=== PATIENT | female | born 1945 | race Caucasian/White ===

== ENCOUNTER → 2023-08-30 13:05 | Outpatient (REF) | payer MEDICARE, OTHER, SELFPAY | LOC: HWRAD 13:05 | PROVIDERS: ATTENDING PHYSICIAN Internal Medicine | DX: Z12.31 Encounter for screening mammogram for malignant neoplasm of breast (principal); Z78.0 Asymptomatic menopausal state | CPT/HCPCS: 77063; 77067; 77080 ==

== ENCOUNTER → 2023-11-15 09:58 | Outpatient (REF) | payer MEDICARE, OTHER, SELFPAY ==
[2023-11-15 12:24] LABS: ALT (SGPT) 19 U/L (0-35); AST (SGOT) 29 U/L (14-36); Albumin 4.4 g/dl (3.5-5.0); Alkaline Phosphatase 66 U/L (38-126); Blood Urea Nitrogen 23 mg/dl (7-17); Calcium 9.6 mg/dl (8.4-10.2); Carbon Dioxide 26 mmol/L (22-30); Chloride 108 mmol/L (98-107); Glucose 94 mg/dl (70-99); HDL Cholesterol 74 mg/dl; LDL Cholesterol, Calculated 95 mg/dl; Potassium 4.2 mmol/L (3.5-5.1); Sodium 141 mmol/L (135-145); Total Bilirubin 0.5 mg/dl (0.2-1.3); Total Cholesterol 195 mg/dl (50-199); Total Protein 6.7 g/dl (6.3-8.2); Triglyceride 131 mg/dl (10-149); Very Low Density Lipoprotein 26 mg/dl (0-30); eGFR 45.76
[2023-11-15 14:25] LABS: Glycohemoglobin (HgbA1c) 5.5 % (4.0-5.6)
== END ==
LOC: HWLAB 09:58
PROVIDERS: ATTENDING PHYSICIAN Internal Medicine
DX: E78.5 Hyperlipidemia, unspecified (principal); R73.01 Impaired fasting glucose
CPT/HCPCS: 36415; 80053; 80061; 83036

== ENCOUNTER → 2024-06-27 10:15 | Outpatient (REF) | payer MEDICARE, OTHER, SELFPAY ==
[2024-06-27 13:04] LABS: ALT (SGPT) 18 U/L (0-35); AST (SGOT) 22 U/L (14-36); Albumin 4.5 g/dl (3.5-5.0); Alkaline Phosphatase 60 U/L (38-126); Blood Urea Nitrogen 35 mg/dl (7-17); Calcium 9.6 mg/dl (8.4-10.2); Carbon Dioxide 21 mmol/L (22-30); Chloride 108 mmol/L (98-107); Glucose 97 mg/dl (70-99); HDL Cholesterol 60 mg/dl; LDL Cholesterol, Calculated 88 mg/dl; Potassium 4.5 mmol/L (3.5-5.1); Sodium 140 mmol/L (135-145); Total Bilirubin 0.6 mg/dl (0.2-1.3); Total Cholesterol 169 mg/dl (50-199); Total Protein 6.9 g/dl (6.3-8.2); Triglyceride 105 mg/dl (10-149); Very Low Density Lipoprotein 21 mg/dl (0-30)
== END ==
LOC: HWLAB 10:15
PROVIDERS: ATTENDING PHYSICIAN Internal Medicine
DX: E78.5 Hyperlipidemia, unspecified (principal)
CPT/HCPCS: 36415; 80053; 80061

== ENCOUNTER → 2024-06-29 10:31 | Outpatient (REF) | payer MEDICARE, OTHER, SELFPAY ==
[2024-06-29 12:25] LABS: 24 Hour Urine Total Volume 1200 ml
[2024-06-29 16:34] LABS: % Basophils 0.8 % (0-2); % Eosinophils 3.3 % (0-6); % Immature Granulocytes 0.1 % (0-0.5); % Lymphocytes 22.7 % (20.5-51.1); % Monocytes 8.2 % (1.7-9.3); % Neutrophils 64.9 % (42.2-75.2); Absolute Basophils 0.1 10^3/uL (0-0.2); Absolute Eosinophils 0.3 10^3/uL (0-0.7); Absolute Lymphocytes 1.7 10^3/uL (1.2-3.4); Absolute Monocytes 0.6 10^3/uL (0.1-0.6); Mean Corp Hgb Conc. 33.3 g/dL (33.0-37.0); Mean Corpuscular Hgb 30.8 pg (27.0-31.0); Mean Corpuscular Volume 92.5 fL (81.0-99.0); Nucleated Red Blood Cells % 0 %; Platelet Count 325 10^3/uL (130-400); Red Blood Cell Count 3.89 10^6/uL (4.20-5.40); Red Cell Dist. Width 13.8 % (11.5-14.5); White Blood Cell Count 7.7 10^3/uL (4.8-10.8)
[2024-06-29 16:41] LABS: Blood Urea Nitrogen 42 mg/dl (7-17); Calcium 9.8 mg/dl (8.4-10.2); Carbon Dioxide 22 mmol/L (22-30); Chloride 104 mmol/L (98-107); Glucose 101 mg/dl (70-99); Potassium 4.6 mmol/L (3.5-5.1); Sodium 137 mmol/L (135-145)
[2024-06-29 16:50] LABS: Serum Creatinine 1.6 mg/dl (0.7-1.5)
[2024-06-29 16:51] LABS: Creat Clear Result 32.7 ml/min (61-166); Height Cm 170.18 CM; Surface Area 2.022; Weight Kg 90.7 KG.
[2024-06-29 17:11] LABS: TSH Reflex To Free T4 0.38 uIU/ml (0.47-4.68)
[2024-06-29 17:40] LABS: Free T4 1.19 ng/dl (0.78-2.19)
== END ==
LOC: HWLAB 10:31
PROVIDERS: ATTENDING PHYSICIAN Internal Medicine
DX: N18.31 Chronic kidney disease, stage 3a (principal); R06.02 Shortness of breath; R53.83 Other fatigue
CPT/HCPCS: 36415; 71046; 80048; 81050; 82575; 84439; 84443; 85025

== ENCOUNTER → 2024-07-12 11:46 | Outpatient (REF) | payer MEDICARE, OTHER, SELFPAY | LOC: HWRCS 11:46 | PROVIDERS: ATTENDING PHYSICIAN Internal Medicine | DX: Z01.818 Encounter for other preprocedural examination (principal); E78.5 Hyperlipidemia, unspecified; R06.02 Shortness of breath | CPT/HCPCS: 78452; 93017; A9500; J2785 ==

== ENCOUNTER 2024-07-24 09:05 | Inpatient (IN) | payer MEDICARE, OTHER, SELFPAY ==
[2024-07-19 11:39] LABS: Hematocrit 36.7 % (37.0-47.0); Hemoglobin 11.7 g/dL (12.0-16.0); Mean Corp Hgb Conc. 31.9 g/dL (33.0-37.0); Mean Corpuscular Hgb 30.1 pg (27.0-31.0); Mean Corpuscular Volume 94.3 fL (81.0-99.0); Mean Platelet Volume 10.1 fL (7.4-10.4); Platelet Count 306 10^3/uL (130-400); Red Blood Cell Count 3.89 10^6/uL (4.20-5.40); Red Cell Dist. Width 14.7 % (11.5-14.5); White Blood Cell Count 7.9 10^3/uL (4.8-10.8)
[2024-07-19 11:41] LABS: ALT (SGPT) 17 U/L (0-35); AST (SGOT) 22 U/L (14-36); Albumin 4.7 g/dl (3.5-5.0); Alkaline Phosphatase 65 U/L (38-126); Blood Urea Nitrogen 27 mg/dl (7-17); Calcium 9.7 mg/dl (8.4-10.2); Carbon Dioxide 22 mmol/L (22-30); Chloride 107 mmol/L (98-107); Glucose 88 mg/dl (70-99); Potassium 4.8 mmol/L (3.5-5.1); Sodium 141 mmol/L (135-145); Total Bilirubin 0.7 mg/dl (0.2-1.3); Total Protein 6.9 g/dl (6.3-8.2); eGFR 41.31
[2024-07-19 13:49] LABS: Glycohemoglobin (HgbA1c) 5.4 % (4.0-5.6)
[2024-07-19 14:09] VITALS: BMI 31.8
[2024-07-20 11:05] VITALS: BMI 31.8
[2024-07-24] VITALS (8 sets, daily range): BP systolic 115–171; BP diastolic 64–88; PULSE 76; O2SAT 98
[2024-07-24] MEDS: CELEBREX 200 MG PO (10:24)
[2024-07-24] MEDS: TYLENOL 650 MG PO (10:24)
[2024-07-24] MEDS: NORMOSOL-R/PLASMALYTE-A 1000 IV ×2 (10:40→16:27)
--- NOTE | 2024-07-24 14:18 | W.PN.UPDATE ---
Update Note
Progress Note Update
L knee OA s/p L TKA w/ Dr York 07/24/24
- s/p R TKA, 2013, by Dr Medina and remote b/l TSA
DVT prophylaxis - ASA, b/l venous foot pumps
HTN - + parameters - monitor BP
Chronic myocardial ischemia, on medical therapy - monitor on tele
Abdominal aortic aneurysm per records - ensure adequate BP control
Chronic kidney disease stage 3 - minimize NSAIDs post-op
Peripheral neuropathy
Lumbar degenerative disc disease with radiculopathy
- Add Gabapentin to accommodate for post-surgical pain
Mild pre-operative anemia - non-invasive hgb in AM
Hyperlipidemia
Chronic dyspnea on exertion
Vocal cord dysfunction with previous Botox injections
Colon polyps
Diverticulosis
Benign essential tremor
Herpes simplex virus
Anxiety
Bipolar disorder
Obesity, BMI 31.8
[2024-07-24] MEDS: DIOVAN 80 MG PO (16:23)
[2024-07-24] MEDS: NEURONTIN 200 MG PO (16:23)
[2024-07-24] MEDS: LAMICTAL 200 MG PO (16:24)
[2024-07-24] MEDS: SEROQUEL 12.5 MG PO (16:24)
[2024-07-24] MEDS: LIPITOR 20 MG PO (18:14)
[2024-07-24] MEDS: ASPIRIN 325 MG PO (18:14)
[2024-07-24] MEDS: ANCEF 5 IV (22:00)
[2024-07-24] MEDS: DECADRON 4 MG PO (22:00)
[2024-07-24] MEDS: BACTROBAN 2% OINTMENT 1 APPLIC NASAL (22:02)
[2024-07-24] MEDS: PEPCID 20 MG PO (22:03)
[2024-07-24] MEDS: FLOMAX 0.4 MG PO (22:43)
[2024-07-24] MEDS: COLACE PO (22:44)
[2024-07-24] MEDS: NEURONTIN PO (22:44)
[2024-07-24] MEDS: NORCO 5/325 1 TABLET PO (22:44)
[2024-07-25 00:23] VITALS: BP 117/64
[2024-07-25] MEDS: NORCO 5/325 2 TABLET PO ×2 (02:34→08:01)
[2024-07-25 03:00] VITALS: BP 119/61
[2024-07-25] MEDS: ANCEF 5 IV (05:39)
[2024-07-25 06:56] VITALS: BP 124/70
[2024-07-25] MEDS: SEROQUEL 12.5 MG PO (08:01)
[2024-07-25] MEDS: LAMICTAL 200 MG PO (08:01)
[2024-07-25] MEDS: NEURONTIN 200 MG PO (08:02)
[2024-07-25] MEDS: ASPIRIN 325 MG PO (08:02)
[2024-07-25] MEDS: DIOVAN PO (08:02)
[2024-07-25] MEDS: COLACE 100 MG PO (08:02)
[2024-07-25] MEDS: DECADRON 4 MG PO (08:03)
--- NOTE | 2024-07-25 09:00 | W.PN.ORTHO ---
Today's Communication / Plan
-
Await PT and OT recs.
D/c later today if remaining clinically stable.
Assessment
.
Distal Motor Intact: Yes
Dressing:
Scant areas of old bleeding along incision line.
Assessment:
L knee OA s/p L TKA w/ Dr York 07/24/24
- s/p R TKA, 2013, by Dr Medina and remote b/l TSA
DVT prophylaxis - ASA, b/l venous foot pumps
Post-surgical urinary retention - improving by POD 1 w/ Flomax x1
HTN - + parameters - BPs overall stable
Chronic myocardial ischemia, on medical therapy - maintaining NSR on tele
Abdominal aortic aneurysm per records - adequate BP control ensured
Chronic kidney disease stage 3 - minimized NSAIDs post-op
Peripheral neuropathy
Lumbar degenerative disc disease with radiculopathy
- Continue Gabapentin to accommodate for post-surgical pain
Mild pre-operative anemia - non-invasive hgb 10.9 POD 1
- Asymptomatic, hemodynamically stable
Hyperlipidemia
Chronic dyspnea on exertion
Vocal cord dysfunction with previous Botox injections
Colon polyps
Diverticulosis
Benign essential tremor
Herpes simplex virus
Anxiety
Bipolar disorder
Obesity, BMI 31.8
Plan
.
Surgery / Date: L TKA w/ Dr York 07/24/24
DVT Prophylaxis: Aspirin
Activity:
Out of bed.
PT/OT
Discharge Plan: Home w/ VN
Subjective
.
.:
Patient resting comfortably in bed.
L knee pain overall well tolerated w/ current pain meds.
Denies any new significant complaints.
Eager for potential d/c today.
Vital Signs and Labs
.
Vital Signs and Labs:
Lab Results
07/19/24 10:24
07/19/24 10:24
Temp Pulse Resp BP Pulse Ox
98.0 F 73 18 124/70 97
07/25/24 06:56 07/25/24 08:02 07/25/24 06:56 07/25/24 08:02 07/25/24 06:56
Non-invasive Hgb result: 10.9
Physical Exam
-
HEENT: No pallor, cyanosis, or jaundice. Throat clear.
NECK: Supple. No JVD.
RESPIRATORY: Lungs clear to auscultation.
CVS: S1, S2 normal. RRR.�
ABDOMEN: Soft, non-tender. No distension. Obese.
EXTREMITIES: Expected post-surgical L knee edema. Strength equal, no calf pain with palpation/dorsiflexion. Calves soft
VISITOR SERVICES INFORMATION ASSISTANT: AOx3. No focal deficits. license examiner grossly intact
--- NOTE | 2024-07-25 09:13 | W.DS.TRANS ---
DC Summary - Behavioral Health Worker
-
Discharge Instructions:
Sleep Apnea Risk Intermediate
Discharge Diagnosis/Procedures L knee OA s/p L TKA w/ Dr York 07/24/24
Diet Regular
Activity As tolerated,With Walker
Driving Restrictions Not until seen by your Dr
Bathing Restrictions OK to Shower
Other Services PT,VN
Wound Care Dressing to be removed 1 week post-surgery.
Ruperto to be removed at 2 week follow-up with
surgeon's office.
Instructions:
Stand-Alone Forms: Total Hip/Knee Replacement D/C
Changes to Home Medications: Yes
Discharge Medications:
DC Medications w/original date entered in [employer]
simvastatin 20 mg tablet 40 mg PO DAILY High Cholesterol 08/04/12
valacyclovir 500 mg tablet 500 mg PO Q48H Infection 08/04/12
biotin 300 mcg tablet 600 mcg PO DAILY Supplement 07/18/24
calcium carbonate (Calcium 600) 600 mg PO DAILY Supplement 07/18/24
coQ10 (ubiquinol) 200 mg capsule 200 mg PO DAILY Supplement 07/18/24
cranberry extract 650 mg capsule (Theracran) 650 mg PO DAILY Supplement 07/18/24
lamotrigine 200 mg tablet 200 mg PO DAILY Neurological Condition 07/18/24
quetiapine 25 mg tablet 12.5 - 25 mg PO DAILY Mental Health/Anxiety 07/18/24
turmeric root extract 500 mg capsule 1,000 mg PO DAILY Supplement 07/18/24
mupirocin 2 % topical ointment 1 applic intranasal BID #1 tube 07/19/24
Vitamin C 1 dose PO DAILYPRN PRN cold ##0 07/25/24
acetaminophen 325 mg tablet 650 mg (2 x 325 mg) PO Q4HPRN PRN mild pain #60 tabs 07/25/24
aspirin 325 mg tablet 325 mg PO DAILY #30 tabs 07/25/24
dexamethasone 4 mg tablet 4 mg PO BID Anti-inflammatory #5 tabs 07/25/24
docusate sodium 100 mg capsule 100 mg PO BID #30 caps 07/25/24
famotidine 20 mg tablet 20 mg PO HS #30 tabs 07/25/24
gabapentin 100 mg capsule 200 mg (2 x 100 mg) PO TID neuropathic pain #30 caps 07/25/24
hydrocodone 5 mg-acetaminophen 325 mg tablet 1 - 2 tab PO Q6H PRN moderate-severe pain #30 tabs 07/25/24
ondansetron HCl 4 mg tablet 4 mg PO Q6H PRN nausea and vomiting #30 tabs 07/25/24
sennosides 8.6 mg tablet (Dasia-carlton) 17.2 mg (2 x 8.6 mg) PO BID #30 tabs 07/25/24
valsartan 80 mg tablet 80 mg PO DAILY Blood Pressure #1 tab 07/25/24
Home Medication Changes
acetaminophen 325 mg tablet 650 mg (2 x 325 mg) PO Q4HPRN PRN mild pain #60 tabs 07/25/24
aspirin 325 mg tablet 325 mg PO DAILY #30 tabs 07/25/24
dexamethasone 4 mg tablet 4 mg PO BID Anti-inflammatory #5 tabs 07/25/24
docusate sodium 100 mg capsule 100 mg PO BID #30 caps 07/25/24
famotidine 20 mg tablet 20 mg PO HS #30 tabs 07/25/24
gabapentin 100 mg capsule 200 mg (2 x 100 mg) PO TID neuropathic pain #30 caps 07/25/24
hydrocodone 5 mg-acetaminophen 325 mg tablet 1 - 2 tab PO Q6H PRN moderate-severe pain #30 tabs 07/25/24
ondansetron HCl 4 mg tablet 4 mg PO Q6H PRN nausea and vomiting #30 tabs 07/25/24
sennosides 8.6 mg tablet (Dasia-carlton) 17.2 mg (2 x 8.6 mg) PO BID #30 tabs 07/25/24
Pending Results: No
[2024-07-25] MEDS: BACTROBAN 2% OINTMENT 1 APPLIC NASAL (10:00)
[2024-07-25 10:06] VITALS: BP 127/76; BP 134/76; PULSE 82; O2SAT 97
--- NOTE | 2024-07-25 10:36 | CM ---
Initial assessment completed
Pt reports she lives with her in a 1 story home; 1 [address]HA
Independent with ADL's, rollator to ambulate
DME - rollator, raised toilet seat, toilet rails, shower chair, single point cane
SNF - denies past hx
HH - has had in past - unsure of agency
Has ride home - son
PCP - Omaira Kim
Pharm - [facility] [place]
Seen by PT/OT - recs HH
Commode and rolling walker to be dispensed by PT/OT
No preference to agency - [facility]
Given IMM
Plan - home with [facility]
--- NOTE | 2024-07-25 10:58 | VNURNOTE ---
[facility] liaison attempted to meet with patient - she was working with PT. [facility] referral placed in [facility]. Will follow up.
[2024-07-25 11:04] VITALS: BP 110/58
[2024-07-25 11:08] VITALS: BP 110/67; PULSE 95; O2SAT 95
--- NOTE | 2024-07-25 11:16 | VNURNOTE ---
Home Health Liaison spoke with patient to discuss [facility] nurse/therapy, visits, schedule and homebound status. Patient is agreeable and understands that visits at home will be 2-3 x per week to assess and teach medical management. Patient is aware
that [facility] will contact them for start of care in 1-2 days after discharge from . [facility] referral completed in [facility].
== END 2024-07-25 12:40 | disposition home health service (06) | DRG 470 ==
LOC: 2 SOUTH 09:05
PROVIDERS: ADMITTING PHYSICIAN Specialist; FAMILY PHYSICIAN Internal Medicine
PROC: 3E0436Z Introduction of Nutritional Substance into Central Vein, Percutaneous Approach (ICD-10-PCS; 2024-07-24)
PROC: 0SRD0J9 Replacement of Left Knee Joint with Synthetic Substitute, Cemented, Open Approach (ICD-10-PCS; 2024-07-24)
DX: M17.12 Unilateral primary osteoarthritis, left knee (principal); E66.9 Obesity, unspecified; Z68.33 Body mass index [BMI] 33.0-33.9, adult; N18.30 Chronic kidney disease, stage 3 unspecified; I12.9 Hypertensive chronic kidney disease with stage 1 through stage 4 chronic kidney disease, or unspecified chronic kidney disease; E78.5 Hyperlipidemia, unspecified; I25.9 Chronic ischemic heart disease, unspecified; I71.40 Abdominal aortic aneurysm, without rupture, unspecified; Z86.0100 Personal history of colon polyps, unspecified; K57.30 Diverticulosis of large intestine without perforation or abscess without bleeding; G62.9 Polyneuropathy, unspecified; G25.0 Essential tremor; F41.9 Anxiety disorder, unspecified; F31.9 Bipolar disorder, unspecified; M51.16 Intervertebral disc disorders with radiculopathy, lumbar region; D64.9 Anemia, unspecified; Z96.619 Presence of unspecified artificial shoulder joint
CPT/HCPCS: 36415; 73560; 80053; 83036; 85027; 86850; 86900; 86901; 87070; 97110; 97116; 97162; 97167; 97530; 97535; C1713; C1776

== ENCOUNTER 2024-08-09 12:54 | Emergency (ER) | payer MEDICARE, OTHER, SELFPAY ==
[2024-08-09] VITALS (9 sets, daily range): BP systolic 98–142; BP diastolic 50–85; PULSE 73–98
[2024-08-09 13:16] LABS: % Basophils 0.2 % (0-2); % Eosinophils 5.5 % (0-6); % Immature Granulocytes 0.5 % (0-0.5); % Lymphocytes 7.7 % (20.5-51.1); % Neutrophils 77.1 % (42.2-75.2); Absolute Eosinophils 0.6 10^3/uL (0-0.7); Absolute Immature Granulocytes 0.1 10^3/uL (0-0.05); Absolute Lymphocytes 0.9 10^3/uL (1.2-3.4); Absolute Neutrophils 8.5 10^3/uL (1.4-6.5); Hematocrit 28.1 % (37.0-47.0); Mean Corpuscular Hgb 31.7 pg (27.0-31.0); Mean Corpuscular Volume 98.9 fL (81.0-99.0); Nucleated Red Blood Cells % 0 %; Platelet Count 304 10^3/uL (130-400); Red Blood Cell Count 2.84 10^6/uL (4.20-5.40); Red Cell Dist. Width 15.1 % (11.5-14.5)
--- NOTE | 2024-08-09 13:26 | ED.GENMED ---
History of Present Illness
<Deep Faust DO - Last Filed: 08/09/24 13:38>
General
Chief Complaint: Blood Pressure Problem
Source: patient and spouse
Exam Limitations: none
Time Seen by Provider: 08/09/24 13:08
Nursing documentation reviewed up to this point in time: agreed with
History of Present Illness
History of Present Illness:
79-year-old female hypertension neurologic/psychiatric disease, few weeks status post left total knee replacement been recovering well physical therapist sent her in because her blood pressure was low she felt dizzy for the past day or so denies
shortness of breath, no fever, no chest pain no syncope did take an Ambien last night, does have some pain in her knee with physical therapy but not at rest, referred in for evaluation no blood thinners by report no drainage from the wound no fevers
no dark or bloody stools
Past History
<Deep Faust DO - Last Filed: 08/09/24 13:38>
Past History
ED Past Medical History: HTN, Hypercholesterolemia, Psychiatric and Other (herpes, anxiety, depression, diverticulosis, hepatic cyst)
ED Past Surgical History: Orthopedic
Social History
Tobacco: Non-smoker
Alcohol: None
Drug: None
Personal:
Living: with family
Employment: Retired
Review of Systems
<Deep Faust DO - Last Filed: 08/09/24 13:38>
Review of Systems
All Other Systems: Not applicable
Constitutional: Denies fever or fatigue
Respiratory: Denies cough or trouble breathing
Cardiac: Denies chest pain
ABD/GI: Reports no symptoms
: Reports no symptoms
Musculoskeletal: Reports joint pain
Neurological: Reports dizzy and weakness
Phy Exam
<Deep Faust DO - Last Filed: 08/09/24 13:38>
Physical Exam
Physical Exam:
Physical Exam
General: no apparent distress, not acutely ill
Neck: No jaundice no pallor
Heart: s1/s2 regular rate and rhythm, no murmur. equal radial pulses.
Lungs: no acute respiratory distress. clear bilaterally
Abdomen: Nontender
Neuro: alert and oriented. no focal neurological deficits
Skin: no rash
Psychiatric: well kept. interactive and cooperative
Extremities: No calf pain, surgical yonathan intact in the left knee
Course
<Deep Faust, DO - Last Filed: 08/09/24 13:38>
Orders/Labs/Results
Orders:
Orders
08/09/24 13:00
Electrocardiogram (*1) Urgent
Reason for Study: Syncope
EKG- Treatment ONCE
08/09/24 13:03
Complete Blood Count/With Diff Urgent
Comprehensive Metabolic Panel Urgent
08/09/24 13:20
Orthostatic VS- Treatment ONCE
08/09/24 13:21
CT Chest PE Study Urgent
Comment:
Reason For Exam: lwo pb tkr
08/09/24 17:12
US Periph Venous LOWER Ext Baltazar Urgent
Comment:
Reason For Exam: swelling
Abnormal Lab Results
08/09/24
13:03
WBC 11.0 H 10^3/uL
(4.8-10.8)
RBC 2.84 L 10^6/uL
(4.20-5.40)
Hgb 9.0 L g/dL
(12.0-16.0)
Hct 28.1 L %
(37.0-47.0)
MCH 31.7 H pg
(27.0-31.0)
MCHC 32.0 L g/dL
(33.0-37.0)
RDW 15.1 H %
(11.5-14.5)
Abs Immat Gran (auto) 0.1 H 10^3/uL
(0-0.05)
Absolute Neuts (auto) 8.5 H 10^3/uL
(1.4-6.5)
Absolute Lymphs (auto) 0.9 L 10^3/uL
(1.2-3.4)
Absolute Monos (auto) 1.0 H 10^3/uL
(0.1-0.6)
Neutrophils % 77.1 H %
(42.2-75.2)
Lymphocytes % 7.7 L %
(20.5-51.1)
BUN 27 H mg/dl
(7-17)
Creatinine 1.3 H mg/dL
(0.6-1.0)
Total Protein 5.6 L g/dl
(6.3-8.2)
Albumin 3.4 L g/dl
(3.5-5.0)
08/09/24 13:03
08/09/24 13:03
Vital Signs
Initial and Last Documented VS:
Initial Vital Signs
Temp Pulse Resp BP Pulse Ox
97.5 F 79 18 98/75 97
08/09/24 12:56 08/09/24 12:56 08/09/24 12:56 08/09/24 12:56 08/09/24 12:56
Last Documented Vital Signs
Temp Pulse Resp BP Pulse Ox
97.5 F 101 13 142/85 97
08/09/24 12:56 08/09/24 18:53 08/09/24 14:15 08/09/24 18:53 08/09/24 13:45
<Maria Teresa Prasad MD - Last Filed: 08/09/24 18:59>
Orders/Labs/Results
Orders:
Orders
08/09/24 13:00
Electrocardiogram (*1) Urgent
Reason for Study: Syncope
EKG- Treatment ONCE
08/09/24 13:03
Complete Blood Count/With Diff Urgent
Comprehensive Metabolic Panel Urgent
08/09/24 13:20
Orthostatic VS- Treatment ONCE
08/09/24 13:21
CT Chest PE Study Urgent
Comment:
Reason For Exam: lwo pb tkr
08/09/24 17:12
US Periph Venous LOWER Ext Baltazar Urgent
Comment:
Reason For Exam: swelling
Abnormal Lab Results
08/09/24
13:03
WBC 11.0 H 10^3/uL
(4.8-10.8)
RBC 2.84 L 10^6/uL
(4.20-5.40)
Hgb 9.0 L g/dL
(12.0-16.0)
Hct 28.1 L %
(37.0-47.0)
MCH 31.7 H pg
(27.0-31.0)
MCHC 32.0 L g/dL
(33.0-37.0)
RDW 15.1 H %
(11.5-14.5)
Abs Immat Gran (auto) 0.1 H 10^3/uL
(0-0.05)
Absolute Neuts (auto) 8.5 H 10^3/uL
(1.4-6.5)
Absolute Lymphs (auto) 0.9 L 10^3/uL
(1.2-3.4)
Absolute Monos (auto) 1.0 H 10^3/uL
(0.1-0.6)
Neutrophils % 77.1 H %
(42.2-75.2)
Lymphocytes % 7.7 L %
(20.5-51.1)
BUN 27 H mg/dl
(7-17)
Creatinine 1.3 H mg/dL
(0.6-1.0)
Total Protein 5.6 L g/dl
(6.3-8.2)
Albumin 3.4 L g/dl
(3.5-5.0)
08/09/24 13:03
08/09/24 13:03
Vital Signs
Initial and Last Documented VS:
Initial Vital Signs
Temp Pulse Resp BP Pulse Ox
97.5 F 79 18 98/75 97
08/09/24 12:56 08/09/24 12:56 08/09/24 12:56 08/09/24 12:56 08/09/24 12:56
Last Documented Vital Signs
Temp Pulse Resp BP Pulse Ox
97.5 F 101 13 142/85 97
08/09/24 12:56 08/09/24 18:53 08/09/24 14:15 08/09/24 18:53 08/09/24 13:45
<Deep Faust, DO - Last Filed: 08/09/24 13:38>
MDM/Problems Addressed
Differential Diagnosis Includes:
Overmedication, orthostasis, PE
MDM/Problems Addressed:
Weakness dizziness
Chronic conditions affecting care:
Recent orthopedic surgery hypertension
Acute Exacerbation and/or Progression of Chronic Illness:
Recent orthopedic surgeon
<Deep Faust, DO - Last Filed: 08/09/24 13:38>
*Radiology
Radiology exam reviewed: radiology read reviewed
*Pulse Oximetry
Patient hypoxic: no
*EKG
Interpreted by ED Provider?: Yes
Interpretation: normal
Comparison EKG: no comparison EKG present
Heart Rate: 78
Rate: normal
Rhythm: sinus
Ischemia: no ischemia
*Director Talent Acquisition Interpretation
Rate: normal
Interpretation: normal
Heart Rate: 78
Rhythm: sinus
*Critical Care Note
Total Time (30-74mins, 75-104mins- exclusive of procedures): Not Applicable
Data Reviewed
Review of Other/Old Records Reveals: Labs
Source: patient
<Deep Faust DO - Last Filed: 08/09/24 13:38>
Update Note
Update Note:
Update, suspect she might be overmedicated with neurologic meds sleep meds high blood pressure meds not the best historian, will rule out PE EKG is nonischemic does have slight drop in her hemoglobin but no signs of active bleeding by history or
physical
<Maria Teresa Prasad MD - Last Filed: 08/09/24 18:59>
Update Note
Update Note:
Update, suspect she might be overmedicated with neurologic meds sleep meds high blood pressure meds not the best historian, will rule out PE EKG is nonischemic does have slight drop in her hemoglobin but no signs of active bleeding by history or
physical.
6:57 PM Long discussion with patient, , and also discussion with radiologist given CT report that is somewhat vague. Overall, artifact versus clot but most likely to be related to an artifact. I specifically asked radiologist if there is
another test that could be done to further differentiate, and he states that a VQ scan would not show such a small potential abnormality. Only other test would be to repeat the CAT scan, which of course reexposes the patient to radiation, but also
concern regarding the IV contrast given patient's kidney function which is not completely normal. In addition, I ordered ultrasound of legs bilaterally which is negative for DVT. Overall clinical suspicion for PE low given lack of dyspnea,
tachycardia, hypoxia, etc. etc. Weighing risks and benefits of repeating the scan for a probable artifact, recommendation is not to repeat the scan, patient eager to go home with close follow-up which is reasonable. Dr. Faust recommends that
patient discontinue Ambien and have her PCP reassess her medications in the morning. Discussed with both patient and importance of this follow-up and reasons to return to the ER.
ED Attending Note
<Deep Faust DO - Last Filed: 08/09/24 13:38>
-
Portions of this chart may have been created with voice recognition software.� Occasional wrong word or��sound alike� substitutions may have occurred due to the inherent limitations of voice recognition software.
Discharge Plan
Departure
Patient Disposition: Home (Routine Discharge)
Date of Disposition: 08/09/24
Time of Disposition: 18:56
Patient with high blood pressure during this ER visit?: Yes
Condition: Good
Discharge Problem:
Dizziness
Instructions: Dizziness in adults - ED discharge instructions, BLOOD PRESSURE
Prescriptions:
No Action
valacyclovir 500 MG tablet
500 mg PO Q48H
quetiapine 25 mg Tablet
12.5 - 25 mg PO DAILY
lamotrigine 200 mg Tablet
200 mg PO DAILY
gabapentin 100 mg Capsule
200 mg PO TID Qty: 30 0RF
sennosides [Dasia-carlton] 8.6 mg Tablet
17.2 mg PO BID Qty: 30 0RF
valsartan 80 mg Tablet
80 mg PO DAILY Qty: 1 0RF
Rx Instructions:
HOLD IF systolic blood pressure <130 while on post-surgical narcotics.
simvastatin 40 mg tablet
40 mg PO QPM
zolpidem 5 mg tablet
5 mg PO HSPRN PRN (Reason: sleep)
hydrocodone-acetaminophen 5-325 mg tablet
1 - 2 tab PO Q6HPRN PRN (Reason: moderate-severe pain)
Rx Instructions:
1 tab for moderate pain, 2 if severe.
Dx total joint
Referrals:
Omaira Kim MD [Family Provider] - Tomorrow
Activity Restrictions/Additional Instructions:
PLEASE DISCONTINUE THE AMBIEN THAT YOU HAVE BEEN TAKING FOR SLEEP UNTIL FURTHER NOTICE. PLEASE CONTACT YOUR DOCTOR FOR MEDICATION REVIEW AND REASSESSMENT IN THE MORNING. IF YOU DEVELOP CHEST PAIN, SHORTNESS OF BREATH, FEVER, VOMITING, RECURRENT
DIZZINESS, NUMBNESS, FOCAL WEAKNESS, OR OTHER WORRISOME SIGNS, PLEASE RETURN TO THE ER IMMEDIATELY!
Interventions
Interventions:
*Risk Screen - Suicide Last Done: 08/09/24 12:56
*General Assessment Last Done: 08/09/24 12:56
*Neglect/Abuse Screening Last Done: 08/09/24 12:56
*ED COVID-19 Vaccine History Last Done: 08/09/24 12:56
ED- Cardiac Assessment Last Done: 08/09/24 13:17
ED- Neurological Assessment Last Done: 08/09/24 13:17
ED- Pulmonary Assessment Last Done: 08/09/24 13:17
Discharge Date and Time
Print Language: [id number]
[2024-08-09 13:39] LABS: ALT (SGPT) 18 U/L (0-35); AST (SGOT) 21 U/L (14-36); Albumin 3.4 g/dl (3.5-5.0); Alkaline Phosphatase 68 U/L (38-126); Blood Urea Nitrogen 27 mg/dl (7-17); Calcium 8.7 mg/dl (8.4-10.2); Carbon Dioxide 25 mmol/L (22-30); Chloride 106 mmol/L (98-107); Glucose 98 mg/dl (70-99); Potassium 4.5 mmol/L (3.5-5.1); Sodium 139 mmol/L (135-145); Total Bilirubin 0.5 mg/dl (0.2-1.3); Total Protein 5.6 g/dl (6.3-8.2); eGFR 41.31
== END 2024-08-09 19:12 | disposition home or self-care (01) ==
LOC: EMR 12:54
PROVIDERS: Student in an Organized Health Care Education/Training Program; EMERGENCY PHYSICIAN Emergency Medicine; FAMILY PHYSICIAN Internal Medicine
DX: R42 Dizziness and giddiness (principal); M25.562 Pain in left knee; I10 Essential (primary) hypertension; E78.00 Pure hypercholesterolemia, unspecified; Z96.652 Presence of left artificial knee joint
CPT/HCPCS: 99284; 71275; 80053; 85025; 93005; 93970; Q9967

== ENCOUNTER → 2024-12-29 11:57 | Outpatient (REF) | payer MEDICARE, OTHER, SELFPAY | LOC: HWLAB 11:57 | PROVIDERS: ATTENDING PHYSICIAN Internal Medicine | DX: R94.6 Abnormal results of thyroid function studies (principal) | CPT/HCPCS: 36415; 84443 ==

== ENCOUNTER → 2025-02-01 12:37 | Outpatient (REF) | payer MEDICARE, OTHER, SELFPAY ==
[2025-02-01 16:18] LABS: Blood Urea Nitrogen 23 mg/dl (7-17); Calcium 9.9 mg/dl (8.4-10.2); Carbon Dioxide 25 mmol/L (22-30); Chloride 102 mmol/L (98-107); Glucose 91 mg/dl (70-99); Potassium 4.2 mmol/L (3.5-5.1); Sodium 136 mmol/L (135-145); eGFR 56.60
== END ==
LOC: HWLAB 12:37
PROVIDERS: ATTENDING PHYSICIAN Internal Medicine
DX: N18.32 Chronic kidney disease, stage 3b (principal)
CPT/HCPCS: 36415; 80048